=== PATIENT | male | born 1980 | race Caucasian/White ===

== ENCOUNTER → 2025-03-23 | Outpatient (CLI) | payer BC ==
--- NOTE | 2025-03-23 19:19 | MR ---
EXAMINATION TYPE: MR lumbar spine wo con DATE OF EXAM: 03/23/2025 11:24 AM COMPARISON: None. CLINICAL INDICATION: Male, 45 years old with history of M47.26,M54.50,M48.061, Back pain down left le g TECHNIQUE: Multiplanar, multisequence images of the lumbar spine were acquired. IV Contrast: mL (None, if empty) FINDINGS: Cord ends at the L1-L2 level. L5-S1: There is loss of disc height is level. Some Modic type I degenerative change is present. Mild anterior thecal sac contact is evident. No spinal canal stenosis or neural foraminal stenosis L4-L5: No focal disc herniation or significant disc bulge. No spinal canal stenosis. Neural foramen are patent. L3-L4: No focal disc herniation or significant disc bulge. No spinal canal stenosis. Neural foramen are patent. L2-L3: No focal disc herniation or significant disc bulge. No spinal canal stenosis. Neural foramen are patent. L1-L2: No focal disc herniation or significant disc bulge. No spinal canal stenosis. Neural foramen are patent. T12-L1: No focal disc herniation or significant disc bulge. No spinal canal stenosis. Neural forame n are patent. IMPRESSION: 1. Degenerative disc changes and loss of disc height with Modic type I degenerative endplate changes at the L5-S1 level [facility], , 03/23/2025 7:16 PM
== END | disposition home or self-care (01) ==
LOC: RADMRIMAIN 10:46
PROVIDERS: ATTEND Orthopaedic Surgery
DX: M47.26 Other spondylosis with radiculopathy, lumbar region (principal); M48.061 Spinal stenosis, lumbar region without neurogenic claudication; M51.17 Intervertebral disc disorders with radiculopathy, lumbosacral region
CPT/HCPCS: 72148

== ENCOUNTER → 2025-05-12 | Outpatient (CLI) | payer BC ==
[2025-05-12 09:26] VITALS: BP 153/96; PULSE 63; TEMP 97.6
--- NOTE | 2025-05-12 14:31 | P.PAINPG ---
PQRS Measure Charge Sheet Comment: HISTORY OF PRESENT ILLNESS: A 45 yr old male w sharonda at side as a referral from Dr Younger presents today w severe and chronic LBP >6 mo secondary to radiculopathy, spondylosis and facet arthropathy without myelopathy for evaluation. Pt states pain level is provoked at 10 /10 in intensity, constant, localized in the lumbar spine, predominantly axial, sharp in character without shooting pain. Pain is provoked by any activity. Pain is alleviated by PT x 6 wks which ended in 2020, chiropractic treatments monthly which ended in 2018, physician guided home exercises 4-5 times weekly since Summer 2023, heat, medicaitons, topical, repositioning and rest . Oswestry axial pain score at 20. PMH: OA, MDD PSH: Denies SH: Negative x3 FH: Non contributory All: See list Medications include Neurontin, Ibu, BioFreeze REVIEW OF ORGAN SYSTEMS: CONSTITUTIONAL: No fevers or chills. No recent weight loss. NEUROLOGICAL: + numbness and tingling along the distal extremities. No seizure disorders or headaches. MUSCULOSKELETAL: + pain PSYCHIATRIC: Denies current depression or suicidal thoughts. Physical Examinations : Constitutional : Cooperative , not in acute distress . Neurologic : Cranial nerve II to XII intact. No focal neurological deficits. Psychiatric : alert & oriented x 3. Matching mood & appropriate affect. Judgment & insight intact. Musculoskeletal : Cervical Spine Motor strength in the deltoid and biceps: Normal right side. Normal Left side Motor strength biceps and the wrist extensors: Normal right side . Normal left side Motor strength in the triceps muscle: Normal right side. Normal left side Deep tendon reflexes: Normal at the biceps. Normal at Brachioradialis. Normal at triceps Lhermitte Sign (cervical flexion) positive Vertebral body tenderness to deep palpation over Cervical facet loading test: positive bilaterally Spurling test: positive bilaterally Neck distraction test: positive bilaterally Cuco sign: positive bilaterally Shoulders Muscle bulk/ tone/ strength BL Resisted Internal Rotation positive R / positive L Resisted External Rotation positive R / positive L Empty Can Test positive R / positive L Drop Arm Test positive R / positive L Lumbar spine Motor strength lower extremities ,thigh and legs 5/5 Right side , 5/5 Left side Deep tendon reflexes : Normal Knee Jerk. Normal Ankle Jerk Vertebral body tenderness over Pepper Test positive Lumbar facet Loading Test: positive Right / positive Left L5-S1 Range of motion of the lumbar spine Flexion 30 degrees, extension 10 degrees Straight Leg Raise test: Left/ Right positive at degrees Drop foot reflex: positive R / positive L Lisandra test: positive right / positive left. Severe tenderness over the Sacroiliac joint on the Right / Left sides Gaenslen test: positive bilaterally Sacral spine : Severe tenderness over the Sacroiliac joint: right side / left side Range of motion: Flexion of the lumbar spine <60 degrees Range of motion: Extension of the lumbar spine <20 degrees Gaenslen's Test positive Lisandra test: positive right side / left side Thigh Thrust Test Sacral Thrust Test Hip Joint Antalgic walking gait positive Trendelenburg positive R / positive L Imaging: MRI non contrast lumbar spine from 03/23/25 reviewed Assessment/ Plan : L5-S1 radiculopathy, L5-S1 facet arthropathy Recommendation of ODILIA CARUSO L5-S1 #1. Risks, benefits of procedure discussed and patient verbalized understanding. Admits to anti- coagulant use or medical history of diabetes. Protocol for discontinuation/ continuation of medications meet procedure discussed. Minimal anesthesia provided, if clinically indicated, consisting of Versed and Fentanyl. All questions answered. I have spent greater than 30 minutes on patient care today. Dr Hudson was available by phone for the evaluation of this patient. The time was used to review the medical records including relevant urine studies and Prescription history (MAPs), review of the available imaging, evaluation and examination of the patient, coordination of care with the medical staff and if applicable referring physicians, as well as creation of the medical record - Pain Location Left Lower Back Non-Pharmacological Interventions: Chiropractic Treatment, Heat, Home Exercise, Physical Therapy, Stretching Pharmacological Interventions: Topical Medication Home Medications: Ambulatory Orders Gabapentin 600 mg PO TID 05/12/25 Naproxen 500 mg PO 05/12/25 lamoTRIgine [LaMICtal] 100 mg PO DAILY 05/12/25 traMADol HCL 50 mg PO Q6H PRN 3 Days #12 tab 05/12/25 Controlled Substance Measures - Controlled Substance Measures Is patient prescribed a controlled substance at discharge?: Yes When asked, does pt state using other controlled substances?: Yes If prescribed controlled substance>3 days was MAPS reviewed?: Prescribed <3 Days
== END ==
LOC: PNWHC3 09:03
PROVIDERS: ATTEND Specialist
DX: M47.27 Other spondylosis with radiculopathy, lumbosacral region (principal); Z88.0 Allergy status to penicillin; Z88.1 Allergy status to other antibiotic agents; Z91.013 Allergy to seafood; Z91.041 Radiographic dye allergy status
CPT/HCPCS: 99202